=== PATIENT | female | born 1985 | race American Indian/Alaskan Native ===

== ENCOUNTER 2017-08-04 16:27 | Emergency (ER) | payer SELFPAY ==
[2017-08-04] MEDS ORDERED: CATAPRES PO ONE (17:30)
--- NOTE | 2017-08-04 17:33 | Cat Scan Report ---
FINAL REPORT PROCEDURE: CT HEAD/BRAIN WO CON TECHNIQUE: Computerized tomography of the head was performed without contrast material. HISTORY: HTN with severe headache COMPARISON: No prior studies are available for comparison. FINDINGS: No CT evidence of intracranial mass, hemorrhage, acute territorial infarction, or hydrocephalus. The intracranial arteries are symmetric in density. The visualized paranasal sinuses and mastoids are aerated. No acute fracture is seen. IMPRESSION: Unremarkable exam
[2017-08-04] MEDS ORDERED: ULTRAM PO ONE (17:37)
[2017-08-04] MEDS ORDERED: MOTRIN PO ONE (17:37)
[2017-08-04 17:41] LABS: Basophils # (Auto) 0.1 K/mm3 (0.0-0.1); Basophils % (Auto) 0.6 % (0.0-1.8); Eosinophils # (Auto) 0.1 K/mm3 (0.0-0.4); Hematocrit 43.8 % (30.3-42.9); Hemoglobin 14.8 gm/dl (10.1-14.3); Lymphocytes # (Auto) 3.5 K/mm3 (1.2-5.4); Lymphocytes % (Auto) 32.1 % (13.4-35.0); Mean Corpuscular HGB Conc 34 % (30-34); Mean Corpuscular Hemoglobin 29 pg (28-32); Mean Corpuscular Volume 87 fl (79-97); Monocytes # (Auto) 0.7 K/mm3 (0.0-0.8); Monocytes % (Auto) 6.6 % (0.0-7.3); Platelet Count 285 K/mm3 (140-440); Red Blood Count 5.02 M/mm3 (3.65-5.03); Red Cell Distribution Width 12.5 % (13.2-15.2)
--- NOTE | 2017-08-04 17:41 | Emergency Department Report ---
HPI - General Chief Complaint: High BP Time Seen by Provider: 08/04/17 17:29 - HPI HPI: Room 7 The patient is a 32-year-old female presenting with a chief complaint of headache, back pain. The patient has a history of hypertension but states she is not on medication. The patient states the past week she's had intermittent headaches sometimes severe enough to cause nausea and vomiting. The patient states for the same 2 which is also an minute low back pain that migrates from the left and right. Patient currently denies a headache gives her back pain score of 4/10. Patient denies dysuria, hematuria or vaginal discharge. The patient is on control and states this is why her cycles are irregular. Patient denies fever or preceding trauma. Location: [See above] Duration: 2 Weeks Quality: Headache Severity: 4/10 Modifying factors: [see above] Context: [see above] Mode of transportation: [not driving] ED Past Medical Hx - Past Medical History Previous Medical History?: Yes Hx Hypertension: Yes (no meds) Additional medical history: Morbid obesity - Surgical History Past Surgical History?: No - Family History Family history: no significant - Social History Smoking Status: Never Smoker Substance Use Type: None (denies illicit drug use), Alcohol (occasional) - Medications Home Medications: Home Medications Medication Instructions Recorded Confirmed Last Taken Type Butalb/Acetamin/Caff 50-325-40 2 tab PO Q8HR PRN #10 tablet 08/04/17 Unknown Rx [Fioricet] Ondansetron [Zofran ODT TAB] 8 mg PO Q8HR #20 tab.rapdis 08/04/17 Unknown Rx amLODIPine [Norvasc] 5 mg PO DAILY #90 tab 08/04/17 Unknown Rx ED Review of Systems ROS: Stated complaint: HTN Other details as noted in HPI Constitutional: denies: fever Gastrointestinal: nausea, vomiting Musculoskeletal: back pain Neurological: headache Physical Exam - Physical Exam Vital Signs: Vital Signs 08/04/17 08/04/17 16:35 16:41 Temperature 98.5 F Pulse Rate 106 H 92 H Respiratory 22 20 Rate Blood Pressure 220/128 Blood Pressure 240/142 [Left] O2 Sat by Pulse 96 96 Oximetry Physical Exam: GENERAL: The patient is well-developed well-nourished female sitting on stretcher not appearing to be in acute distress. [] HEENT: Normocephalic. Atraumatic. Extraocular motions are intact. Patient has moist mucous membranes. NECK: Supple. Trachea midline CHEST/LUNGS: Clear to auscultation. There is no respiratory distress noted. HEART/CARDIOVASCULAR: Regular. There is no tachycardia. There is no gallop rub or murmur. ABDOMEN: Abdomen is soft, nontender. Patient has normal bowel sounds. There is no abdominal distention. SKIN: There is no rash. There is no edema. There is no diaphoresis. NEURO: The patient is awake, alert, and oriented. The patient is cooperative. The patient has no focal neurologic deficits. The patient has normal speech. Cranial nerves II through XII grossly intact, no drift MUSCULOSKELETAL: There is no left CVA tenderness. There is no evidence of acute injury. ED Course Vital Signs 08/04/17 08/04/17 16:35 16:41 Temperature 98.5 F Pulse Rate 106 H 92 H Respiratory 22 20 Rate Blood Pressure 220/128 Blood Pressure 240/142 [Left] O2 Sat by Pulse 96 96 Oximetry ED Medical Decision Making - Lab Data Result diagrams: 08/04/17 17:23 08/04/17 17:23 Laboratory Tests 08/04/17 08/04/17 08/04/17 17:23 17:23 17:23 WBC 10.9 RBC 5.02 Hgb 14.8 H Hct 43.8 H MCV 87 MCH 29 MCHC 34 RDW 12.5 L Plt Count 285 Lymph % (Auto) 32.1 [place] % (Auto) 6.6 Eos % (Auto) 1.0 Baso % (Auto) 0.6 Lymph # 3.5 [place] # 0.7 Eos # 0.1 Baso # 0.1 Seg Neutrophils % 59.7 Seg Neutrophils # 6.5 PT 12.9 INR 0.93 APTT 31.9 Thrombin Time Sodium 140 Potassium 3.8 Chloride 101.4 Carbon Dioxide 27 Anion Gap 15 BUN 11 Creatinine 0.6 L Estimated GFR > 60 BUN/Creatinine Ratio 18 Glucose 83 Calcium 9.7 Troponin T < 0.010 Urine Color Urine Turbidity Urine pH Ur Specific [place] Urine Protein Urine Glucose (UA) Urine Ketones Urine Blood Urine Nitrite Urine Bilirubin Urine Urobilinogen Ur Leukocyte Esterase Urine WBC (Auto) Urine RBC (Auto) U Epithel Cells (Auto) Urine Bacteria (Auto) Urine Mucus 08/04/17 08/04/17 17:23 17:36 WBC RBC Hgb Hct MCV MCH MCHC RDW Plt Count Lymph % (Auto) [place] % (Auto) Eos % (Auto) Baso % (Auto) Lymph # [place] # Eos # Baso # Seg Neutrophils % Seg Neutrophils # PT INR APTT Thrombin Time 16.1 Sodium Potassium Chloride Carbon Dioxide Anion Gap BUN Creatinine Estimated GFR BUN/Creatinine Ratio Glucose Calcium Troponin T Urine Color Yellow Urine Turbidity Clear Urine pH 5.0 Ur Specific [place] 1.019 Urine Protein <15 mg/dl Urine Glucose (UA) Neg Urine Ketones Neg Urine Blood Neg Urine Nitrite Neg Urine Bilirubin Neg Urine Urobilinogen < 2.0 Ur Leukocyte Esterase Neg Urine WBC (Auto) 3.0 Urine RBC (Auto) 1.0 U Epithel Cells (Auto) 5.0 Urine Bacteria (Auto) 1+ Urine Mucus Few - EKG Data -: EKG Interpreted by Tn EKG shows normal: sinus rhythm Rate: normal (90 bpm) - EKG Data When compared to previous EKG there are: previous EKG unavailable Interpretation: other (no ischemic changes seen) - Radiology Data Radiology results: report reviewed (CT head), image reviewed (CT head) [facility] [address] [id number] Cat Scan Report Signed Patient: AMY GIBSON MR#: [id number] : 1985 Acct:[id number] Age/Sex: 32 / F ADM Date: 08/04/17 Loc: ED Attending Dr: Ordering Physician: KRYSTYNA SHETTY MD Date of Service: 08/04/17 Procedure(s): CT head/brain wo con Accession Number(s): [id number] cc: KRYSTYNA SHETTY MD FINAL REPORT PROCEDURE: CT HEAD/BRAIN WO CON TECHNIQUE: Computerized tomography of the head was performed without contrast material. HISTORY: HTN with severe headache COMPARISON: No prior studies are available for comparison. FINDINGS: No CT evidence of intracranial mass, hemorrhage, acute territorial infarction, or hydrocephalus. The intracranial arteries are symmetric in density. The visualized paranasal sinuses and mastoids are aerated. No acute fracture is seen. IMPRESSION: Unremarkable exam Transcribed By: [facility] Dictated By: JOEY MARLOW M.D. Electronically Authenticated By: JOEY MARLOW M.D. Signed Date/Time: 08/04/171726 DD/ 26 TD/TT: 08/04/171726 - Differential Diagnosis hypertensive urgency, ICH, migraines, uncontrolled hypertension Critical care attestation.: If time is entered above; I have spent that time in minutes in the direct care of this critically ill patient, excluding procedure time. ED Disposition Clinical Impression: Uncontrolled hypertension, Headache, Back pain Disposition: - TO HOME OR SELFCARE Is pt being admited?: No Does the pt Need Aspirin: No Condition: Stable Instructions: Hypertension (ED) Additional Instructions: Return to the emergency department immediately should you develop worsening symptoms, fever, inability to tolerate food or liquid or any other concerns. Prescriptions: amLODIPine [Norvasc] 5 mg PO DAILY #90 tab Butalb/Acetamin/Caff 50-325-40 [Fioricet] 2 tab PO Q8HR PRN #10 tablet PRN Reason: Headache Ondansetron [Zofran ODT TAB] 8 mg PO Q8HR #20 tab.rapdis Referrals: [facility] [Outside] - 3-5 Days PHILLIP NICOLE MD [Staff Physician] - [facility] (Dr. Nicole is a primary physician. Please follow up with him to be established as a patient for further blood pressure evaluation/management) Time of Disposition: 19:57
[2017-08-04 17:47] LABS: INR 0.93 (0.87-1.13)
[2017-08-04 17:48] LABS: Partial Thromboplastin Time 31.9 Sec. (24.2-36.6)
[2017-08-04 17:50] LABS: BUN/Creatinine Ratio 18; Blood Urea Nitrogen 11 mg/dL (7-17); Calcium 9.7 mg/dL (8.4-10.2); Hemolysis Index 2
[2017-08-04 19:53] LABS: Bacteria,Urine 1+ /HPF (Negative); Bilirubin,Urine NEG (Negative); Blood,Urine NEG (Negative); Color,Urine Yellow (Yellow); Mucus,Urine FEW /HPF; Protein,Urine <15 mg/dL mg/dL (Negative); Urobilinogen,Urine < 2.0 mg/dL (<2.0)
[2017-08-04 20:28] VITALS: BP 130/85
== END 2017-08-04 20:28 | disposition home or self-care (01) ==
LOC: ED 16:27
DX: I10 Essential (primary) hypertension (principal); M54.9 Dorsalgia, unspecified; E66.01 Morbid (severe) obesity due to excess calories; Z68.42 Body mass index [BMI] 45.0-49.9, adult
CPT/HCPCS: 36415; 70450; 80048; 81001; 84484; 85025; 85610; 85670; 85730; 93005; 93010